=== PATIENT | female | born 1990 | race Caucasian/White ===

== ENCOUNTER 2016-06-05 17:02 | Emergency (ER) | payer BC ==
[~2016-06-05] VITALS: Ht 157.5 cm; Wt 47.6 kg
[2016-06-05 17:35] VITALS: BP 128/77
== END 2016-06-06 01:57 | disposition left against medical advice (07) ==
LOC: ER 17:11
DX: M79.89 Other specified soft tissue disorders (principal); Z53.21 Procedure and treatment not carried out due to patient leaving prior to being seen by health care provider